=== PATIENT | female | born 1980 | race Caucasian/White ===

== ENCOUNTER 2024-02-17 14:06 | Emergency (ER) | payer OTHER, SELFPAY ==
[2024-02-17 14:18] VITALS: BP 112/72; PULSE 74; RESP 16; TEMP 37.2; O2SAT 99; BMI 25.7
--- NOTE | 2024-02-17 14:22 | DI.RAD.S_ITS ---
PROCEDURE: XR ANKLE LT MIN 3V INDICATIONS: rolled ankle, swelling, pain TECHNIQUE: 3 views of the ankle were acquired. COMPARISON: None. FINDINGS: Bones: No fractures or dislocations. Ankle mortise is normally aligned. No suspicious bony lesions. Soft tissues: No tibiotalar joint effusion. Achilles tendon appears normal. Soft tissue swelling over the lateral malleolus. IMPRESSION: No acute bony abnormality or significant effusion. Dictated by: Alvaro May M.D. on 02/17/2024 at 13:53 Approved by: Alvaro May M.D. on 02/17/2024 at 13:53
--- NOTE | 2024-02-17 14:58 | ED.LOWEXIN ---
HPI - Extremity Injury (Lower) General Chief Complaint: Extremity Injury, Lower Stated Complaint: Broke L Ankle Time Seen by Provider: 02/17/24 14:54 Source: patient Mode of arrival: Wheelchair History of Present Illness HPI Narrative: 43-year-old female complaining of left ankle pain. Onset earlier today when she rolled her left ankle. Now presently unable to weight bear. No other injuries no pertinent past medical history Related Data Allergies Allergy/AdvReac Type Severity Reaction Status Date / Time adhesive tape AdvReac Rash Verified 02/17/24 14:18 Penicillins AdvReac Rash Verified 02/17/24 14:18 Patient History alcohol intake frequency: holidays/special occasions only Substance Use Type: marijuana Exam Initial Vital Signs Initial Vital Signs: Vital Signs Temperature 98.9 F 02/17/24 14:18 Pulse Rate 74 02/17/24 14:18 Respiratory Rate 16 02/17/24 14:18 Blood Pressure 112/72 02/17/24 14:18 Pulse Oximetry 99 02/17/24 14:18 Oxygen Delivery Method Room Air 02/17/24 14:18 No acute distress appears well Extrem Other: There is swelling over the left lateral malleolus. Ankle is otherwise without deformity. Pulses are intact capillary refill is intact sensation is intact. She has tenderness over the lateral malleolus. Course Orders Ordered: ED Orders 02/17/24 14:22 XR ankle LT min 3V Stat Vital Signs Vital signs: Vital Signs - 8 hr 02/17/24 14:18 Temperature 98.9 F Pulse Rate 74 Respiratory Rate 16 Blood Pressure 112/72 Pulse Oximetry 99 Oxygen Delivery Method Room Air MDM - Extremity Injury (Lower) Imaging Data Extremity x-ray #1: My Impression: Independently reviewed left ankle x-rays, no fracture or dislocation Radiologist's Impression: Radiology interpretation reviewed, no acute bony abnormality Discharge Plan Departure Patient Disposition: Home Clinical Impression: Ankle sprain and strain Instructions: How to Use Crutches, DI for Ankle Sprain Activity Restrictions/Additional Instructions: Wear the provided walking boot splint. Do not weight bear until you are able to do so comfortably, once you are comfortable resuming with weight-bearing, continued wear the walking boot to protect your ankle for me injury. Elevating the ankle above the level of heart when resting will be helpful for swelling. You can also apply ice, keep the eyes from direct skin contact and removed after 10-15 minutes you can do this as often as you wish. Ibuprofen (motrin or advil) should be dosed at 600mg (3 non-prescription tablets) every 6 hours. Taking this on a scheduled basis is more effective. It is a good idea to take this with food. Use this with caution if you have a history of bleeding ulcers or renal disease. Acetaminophen (tylenol) should be dosed at 650 mg every 4 hours or 1000mg every 6 hours. It can be given as needed but is more effective if given on a scheduled basis. Total daily dose should not exceed 4,000mg. If you were prescribed norco (hydrocodone/apap) or percocet (oxycodone/apap) each tablet of these contains 325 mg of acetaminophen and should be included when calculating daily dose Follow up with your primary care provider in about a week. Return to the emergency department for severe pain or other acute symptoms. Stand Alone Forms: Patient Portal/API
[2024-02-17] MEDS: KETOROLAC 30 MG/ML VIAL IM (15:50)
[2024-02-17 15:57] VITALS: BP 114/70; PULSE 74; RESP 49; O2SAT 99
== END 2024-02-17 15:58 | disposition home or self-care (01) ==
PROVIDERS: Emergency Provider Emergency Medicine
DX: S93.402A Sprain of unspecified ligament of left ankle, initial encounter (principal); S96.912A Strain of unspecified muscle and tendon at ankle and foot level, left foot, initial encounter; X50.1XXA Overexertion from prolonged static or awkward postures, initial encounter
CPT/HCPCS: 29580; 73610; 96372; 99283; J1885